=== PATIENT | female | born 1970 | race Caucasian/White ===

== ENCOUNTER 2024-01-25 09:00 | Outpatient (OUT) | payer MEDICARE, MEDICAID, SELFPAY | END 2024-01-25 09:01 | disposition home or self-care (01) | LOC: SLEEP 01-26 09:42 | PROVIDERS: PCP Nurse Practitioner Family; Visit Provider Nurse Practitioner Family | DX: G47.33 Obstructive sleep apnea (adult) (pediatric) (principal) | CPT/HCPCS: 95806 ==